=== PATIENT | female | born 2000 | race African-American/Black ===

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

== ENCOUNTER 2020-09-15 19:59 | Emergency (ER) | payer MEDICAID ==
[~2020-09-15] VITALS: Ht 162.6 cm; Wt 122.5 kg
[2020-09-15] MEDS ORDERED: ACETAMINOPHEN 500 MG TAB PO ONE (20:15)
[2020-09-15 22:05] LABS: Basophils # (auto) 0 10 ^3/uL (0-0.2); Basophils % (auto) 0.4 % (0.0-2.0); Eosinophils # (auto) 0.1 10 ^3/uL (0-0.8); Eosinophils % (auto) 0.9 % (0.0-7.0); Hematocrit 47.2 % (36.0-46.0); Hemoglobin 16.3 g/dL (12.2-16.2); Lymphocytes # (auto) 0.8 10 ^3/uL (0.4-5.4); Lymphocytes % (auto) 11.2 % (10.0-50.0); Mean Corpuscular Hemoglobin 29.8 pg (28.0-32.0); Mean Corpuscular Hgb Conc. 34.5 g/dL (32.0-36.0); Mean Corpuscular Volume 86.4 fL (80.0-100.0); Monocytes # (auto) 0.4 10 ^3/uL (0-1.3); Monocytes % (auto) 4.9 % (0.0-12.0); Neutrophils # (auto) 5.9 10 ^3/uL (1.6-8.6); Neutrophils % (auto) 82.6 % (37.0-80.0); Nucleated Red Blood Cells % 0.1 %; Platelet Count (auto) 320 10^3/uL (140-450); Red Blood Cells 5.46 10^6/uL (4.0-5.20); White Blood Cell 7.1 10^3/uL (4.4-10.8)
[2020-09-15] MEDS ORDERED: SODIUM CHLORIDE 0.9% 1,000 ML IV ONE (22:15)
[2020-09-15 22:28] LABS: Albumin 3.6 g/dL (3.4-5.0); Anion Gap 8 (5-15); Blood Urea Nitrogen 8 mg/dL (7-18); Calcium 9.1 mg/dL (8.5-10.1); Carbon Dioxide 25 mmol/L (21-32); Chloride 103 mmol/L (98-107); Glucose 91 mg/dL (74-106); Sodium 136 mmol/L (136-145)
[2020-09-15 22:35] LABS: Alanine Aminotransferase 24 U/L (13-56); Alkaline Phosphatase 95 U/L (45-117); Aspartate Aminotransferase 20 U/L (15-37); Bilirubin, Total 0.6 mg/dL (0.2-1.0); GFR African American 102 mL/min; GFR Non-African American 84 mL/min; Total Protein 8.5 g/dL (6.4-8.2)
[2020-09-15 23:12] LABS: BUN/Creatinine Ratio 8.9
[2020-09-16 00:14] VITALS: BP 135/66
== END 2020-09-16 01:03 | disposition home or self-care (01) ==
LOC: ER 19:59
DX: B34.9 Viral infection, unspecified (principal); R11.2 Nausea with vomiting, unspecified; Z20.822 Contact with and (suspected) exposure to COVID-19
CPT/HCPCS: 36415; 80053; 83605; 84484; 85025; 87040; 87426; 93005; 96360; 96361; 99285; J7030